=== PATIENT | female | born 1940 | race Caucasian/White ===

== ENCOUNTER 2025-01-30 17:38 | Observation (INO) | payer MEDICARE, SELFPAY ==
[2025-01-30] VITALS (32 sets, daily range): BP systolic 154–263; BP diastolic 49–83; PULSE 55–62; RESP 16–22; TEMP 36.2–36.7; O2SAT 93–97; BMI 31.2
--- NOTE | ~2025-01-30 | US_ITS ---
BILATERAL LOWER EXTREMITY VENOUS DUPLEX Clinical History: +DDimer . Comparison: None. Technique: Grayscale, color, duplex/spectral Doppler sonography bilateral lower extremities. Findings: Bilateral common femoral, femoral, popliteal, and calf veins compressible and color Doppler patent. Normal augmentation with distal compression. No internal echoes. IMPRESSION: 1. No DVT either leg. Reviewed, dictated and finalized at location R. IMPRESSION: 1. No DVT either leg.
--- NOTE | ~2025-01-30 | CT_ITS ---
EXAMINATION: CTA chest PE protocol, 01/31/2025 11:15 CDT HISTORY: chest pain COMPARISON: No comparisons available. TECHNIQUE: CTA examination is obtained with contrast CTA examination technique is performed with arterial phase of contrast-enhancement. 3-D reconstruction with thin MIP axial and MPR coronal imaging is provided Isovue 300, 92cc injected IV. One or more of the following dose reduction techniques were used: automated exposure control, adjustment of the mA and/or kV according to patient size, use of iterative reconstruction technique. FINDINGS: No significant coronary calcification is present ([id number]) LUNGS: Small to moderate bilateral pleural effusions. Small basilar infiltrates. The contrast bolus is adequate, there is no pulmonary embolism. No tracheomalacia. No bronchiectasis. Minimal emphysematous changes. Minimal pulmonary fibrotic changes. Mild pulmonary venous congestion. No significant honeycombing is identified. HEART AND PERICARDIUM: Mild cardiomegaly. AORTA: Normal caliber aorta.. PULMONARY ARTERIES: No pulmonary embolism ADENOPATHY/MEDIASTINUM: None. LIMITED VIEWS OF THE ABDOMEN: Moderate hiatal hernia. OSSEOUS STRUCTURES: No sclerotic or lytic lesions. No acute rib fractures. Poststernotomy changes are evident. OVERLYING SOFT TISSUES: Unremarkable. THYROID: Bilateral thyroid nodules largest right lobe 1.5 x 1.5 cm, ultrasound is suggested. IMPRESSION: Negative for pulmonary embolism. CHF with probable superimposed bronchopneumonia, follow-up is recommended to assess resolution Reviewed, dictated and finalized at location P. IMPRESSION: Negative for pulmonary embolism. CHF with probable superimposed bronchopneumoni a, follow-up is recommended to assess resolution
--- NOTE | ~2025-01-30 | XR_ITS ---
XR chest 2V HOSTORY: CP COMPARISON:[ None] FINDINGS: Frontal and lateral views of the chest were obtained. The lungs are clear. The heart size is normal in size. Pulmonary vasculature is unremarkable. Osseous structures are intact. IMPRESSION: No acute lung findings.] [ ] Reviewed, dictated and finalized at location S.
--- NOTE | 2025-01-30 17:41 | ECG_ITS ---
Test Date: 2025-01-30 17:50:35 Measurements Intervals [place] Rate: 57 P: 41 CT: 158 QRS: 34 QRSD: 93 T: 37 QT: 448 QTc: 439 Interpretive Statements SINUS BRADYCARDIA INCOMPLETE RIGHT BUNDLE BRANCH BLOCK BORDERLINE ST-T WAVE ABNORMALITY- DIFFUSE LEADS BASELINE ARTIFACT- V2, V5-V6 BORDERLINE ECG No previous ECG available for comparison Electronically Signed On 01-30-2025 20:53:11 CDT by Luís Argueta D.O.
[2025-01-30 17:56] LABS: Hematocrit 30.6 % (37.0-47.0); Hemoglobin 9.9 g/dL (12.0-15.0); Immature Granulocyte Percent A 0.3 % (0-0.5); Lymphocytes Absolute Auto 1.42 K/mm3 (0.9-3.2); Mean Corpuscular HGB Conc 32.4 g/dl (32-36); Mean Corpuscular Hemoglobin 30.6 pg (26-34); Mean Corpuscular Volume 94.4 fl (80-100); Nucleated Red Blood Cells Absolute Auto 0.000 K/mm3 (0.0-0.012); Nucleated Red Blood Cells Perc 0.0 % (0.0-0.2); Platelet Count Result 160 k/mm3 (150-375); Red Blood Count 3.24 M/mm3 (4.2-5.4); White Blood Count 6.2 K/mm3 (4.5-10.0)
--- NOTE | 2025-01-30 18:01 | PC.NURSE ---
Pt blood pressure 263/83 upon triage. EDP DARIAN Aparicio made aware and at pt bedside at this time.
[2025-01-30 18:07] LABS: INR 1.0; Prothrombin Time 13.5 Seconds (11.1-14.7)
[2025-01-30 18:08] LABS: Alanine Aminotransferase 18 U/L (6-35); Albumin Level 3.7 g/dL (3.5-5.1); Alkaline Phosphatase 66 U/L (38-126); Anion Gap 7 mmol/L (4-12); Aspartate Amino Transferase 30 U/L (14-36); Bilirubin,Total 0.4 mg/dL (0.2-1.3); Blood Urea Nitrogen 14 mg/dL (7-17); Calcium 8.5 mg/dL (8.4-10.2); Carbon Dioxide 25 mmol/L (22-30); Chloride 107 mmol/L (98-107); Estimated CRCL calculation 38 ml/min; Estimated Glomerular Filt Rate 50; Glucose 95 mg/dL (65-110); Lipase 97 U/L (23-300); Partial Thromboplastin Time 28.8 Seconds (22.3-36.8); Potassium 3.4 mmol/L (3.4-5.0); Sodium 139 mmol/L (137-145); Total Protein 6.3 g/dL (6.3-8.2)
--- NOTE | 2025-01-30 18:17 | ED.CHESTPAIN ---
HPI - Chest Pain General Chief Complaint: Chest Pain <Jennifer Reed PA-C - Last Filed: 01/30/25 22:03> Stated Complaint: Chest pain <Jennifer Reed PA-C - Last Filed: 01/30/25 22:03> Time Seen by Provider: 01/30/25 17:53 <Jennifer Reed PA-C - Last Filed: 01/30/25 22:03> Source: patient <AMRITA Reyna Last Filed: 01/30/25 22:03> Mode of arrival: ambulatory <AMRITA Reyna Last Filed: 01/30/25 22:03> Limitations: no limitations <AMRITA Reyna Last Filed: 01/30/25 22:03> History of Present Illness HPI narrative: Patient is an 84-year-old female, with PMH of CAD s/p CABG 3 years ago, who presents the ED with report of chest pain. Patient reports she has been having near constant midsternal chest pain, described as a heaviness and is of someone punched her in her chest, for the past 2-3 weeks. States she contacted her store group manager, Dr. Smith today and was referred to the ED for further evaluation. Patient also reports having increased shortness of breath with exertion over the past 2 weeks. Does admit to mild intermittent dry cough. Denies fevers. Denies significant lower extremity swelling. <Jennifer Reed PA-C - Last Filed: 01/30/25 22:03> Related Data Home Medications: Home Medications ?Medication ?Instructions ?Recorded ?Confirmed ?Last Taken ?Type aspirin 81 mg capsule 81 mg PO DAILY 01/30/25 01/30/25 01/30/25 History atorvastatin 40 mg tablet (Lipitor) 40 mg PO DAILY 01/30/25 01/30/25 01/30/25 History carvedilol 3.125 mg tablet 3.125 mg PO BID 01/30/25 01/30/25 01/30/25 History clopidogrel 75 mg tablet 75 mg PO DAILY 01/30/25 01/30/25 01/30/25 08:00 History 75 mg famotidine 20 mg tablet 20 mg PO DAILY 01/30/25 01/30/25 01/29/25 History ferrous sulfate 325 mg (65 mg 325 mg PO DAILY 01/30/25 01/30/25 01/30/25 History iron) tablet (Feosol) hydralazine 25 mg tablet 25 mg PO BID 01/30/25 01/30/25 01/30/25 History hydroxyzine HCl 25 mg tablet 25 mg PO BID 01/30/25 01/30/25 01/30/25 History isosorbide mononitrate 30 mg 30 mg PO DAILY 01/30/25 01/30/25 01/30/25 History tablet,extended release 24 hr losartan 100 mg tablet 100 mg PO DAILY 01/30/25 01/30/25 01/30/25 History nifedipine 90 mg tablet,extended 90 mg PO DAILY 01/30/25 01/30/25 01/30/25 History release pravastatin 20 mg tablet 20 mg PO DAILY 01/30/25 01/30/25 01/30/25 History sertraline 100 mg tablet 100 mg PO DAILY 01/30/25 01/30/25 01/30/25 History trazodone 100 mg tablet 50 mg PO HS 01/30/25 01/30/25 01/29/25 21:00 History 50 mg <Jennifer Reed PA-C - Last Filed: 01/30/25 22:03> Allergies/Adverse Reactions: Allergies Allergy/AdvReac Type Severity Reaction Status Date / Time No Known Allergies Allergy Verified 01/30/25 22:36 <Jennifer Reed PA-C - Last Filed: 01/30/25 22:03> Review of Systems Review of Systems: All systems reviewed & are unremarkable except as noted in HPI. <Jennifer Reed PA-C - Last Filed: 01/30/25 22:03> All systems reviewed & are unremarkable except as noted in HPI and below <Jennifer Reed PA-C - Last Filed: 01/30/25 22:03> FOR[facility], LAT[facility] Past Medical History Medical History: Medical History (Updated 01/31/25 @ 04:15 by Delia Gusman DO) Anxiety and depression CKD (chronic kidney disease) stage 3, GFR 30-59 ml/min GERD (gastroesophageal reflux disease) Obstructive sleep apnea Essential hypertension Hyperlipidemia Paroxysmal atrial fibrillation <Jennifer Reed PA-C - Last Filed: 01/30/25 22:03> Surgical History Surgical History: Surgical History (Updated 01/31/25 @ 04:15 by Delia Gusman DO) H/O hysterectomy with unilateral oophorectomy Status post cataract extraction of both eyes with insertion of intraocular lens History of colonoscopy with polypectomy History of appendectomy History of heart artery stent History of four vessel coronary artery bypass graft (~2021) <Jennifer Reed PA-C - Last Filed: 01/30/25 22:03> Family History Family History: Family History Other Cerebrovascular accident Diabetes mellitus Family history of arthritis Family history of heart disease in male family member before age 55 Hypertension <Jennifer Reed PA-C - Last Filed: 01/30/25 22:03> Social History Social History: Social History (Updated 01/31/25 @ 04:19 by Delia Gusman DO) Social History: The patient is reports that she lives in [place] and her only daughter lives with her. She is a lifelong nonsmoker and does not drink alcohol or use illicit substances. Code status: Full code Surrogate decision maker: Daughter Smoking status: Never smoker Alcohol intake: never Substance use: never Lack of Transportation: No Lack of Food: Never True Current Housing: I Have Housing Concerned About Future Housing: No Difficulty Paying Gas/Electric Bills: No Difficulty Paying for Meds: No Currently Unemployed: No Education: High School Diploma/GED Difficulty w/ Childcare or Family Care: No Spiritual care concerns: No <AMRITA Reyna Last Filed: 01/30/25 22:03> Exam Narrative: GENERAL: Elderly, obese with BMI of 32.8, non-toxic, in no acute distress. HEAD: Normocephalic, atraumatic. RESPIRATORY: Airway patent, respirations nonlabored. Clear to auscultation bilaterally, no rales, rhonchi, wheezing. No significant focal lung sounds. CARDIOVASCULAR: Borderline bradycardic with regular rhythm without murmurs, rubs, or gallops. ABDOMINAL: Soft, nontender, nondistended. Normoactive BS. MUSCULOSKELETAL: Moves all extremities. No gross deformities. Compression stockings in place. No significant pitting edema. SKIN: Warm, dry, normal color. NEURO: A&O X3. Speech clear. Cranial nerves II-XII grossly intact. Steady gait. No ataxic movements. PSYCHIATRIC: Appropriate mood and affect. Normal interaction. <Jennifer Reed PA-C - Last Filed: 01/30/25 22:03> Course IMPORT EXPORT MANAGER/PA Physician Supervision This visit was performed by both a physician and an APC. I performed all aspects of the MDM as documented. <Richard Palafox MD - Last Filed: 01/31/25 04:34> Vital Signs Vital signs: Vital Signs Pulse Rate 60 01/30/25 17:45 Respiratory Rate 16 01/30/25 17:45 Pulse Oximetry 95 01/30/25 17:45 Temperature 98.1 F 01/31/25 03:48 Pulse Rate 62 01/31/25 04:25 Respiratory Rate 20 01/31/25 04:25 Blood Pressure 150/47 H 01/31/25 03:48 Pulse Oximetry 92 01/31/25 04:25 Oxygen Delivery Room Air 01/31/25 04:25 <Jennifer Reed PA-C - Last Filed: 01/30/25 22:03> Vital Signs Pulse Rate 60 01/30/25 17:45 Respiratory Rate 16 01/30/25 17:45 Pulse Oximetry 95 01/30/25 17:45 Temperature 98.1 F 01/31/25 03:48 Pulse Rate 62 01/31/25 04:25 Respiratory Rate 20 01/31/25 04:25 Blood Pressure 150/47 H 01/31/25 03:48 Pulse Oximetry 92 01/31/25 04:25 Oxygen Delivery Room Air 01/31/25 04:25 <Richard Palafox MD - Last Filed: 01/31/25 04:34> MDM - Chest Pain MDM Narrative Medical decision making narrative: Patient presented to ED with 2-3 week history of midsternal chest pain/heaviness. History of CAD status post CABG. Patient markedly hypertensive upon arrival. Blood pressure 263/83. She reports that she has not taken her nighttime blood pressure medications tonight. She is on multiple medications for her blood pressure. She took her morning doses. She states she typically checks her blood pressure once a day and is typically around 140 systolic, but she has not checked it in the last 1 week. Patient was given her home Coreg, nifedipine, hydralazine p.o.. This did improve BP slightly to 200 systolic. She was given additional dose of 10 mg IV hydralazine, blood pressures now more stable 170s to 180s systolic. Initial EKG with sinus bradycardia, incomplete right bundle, no significant concerning ST changes. Baseline troponin 0.029. Will continue to trend. BNP is elevated to nearly 7000. Patient does not appear markedly fluid overloaded. She is denying worsening lower extremity edema, but does admit to recent shortness of breath with exertion. Chest x-ray is clear. No evidence of pulmonary vascular congestion. She has not appear to be on any diuretic therapy. No previous known history of CHF. No echo on file. Remainder basic laboratory studies are otherwise fairly unremarkable. D-dimer age adjusted normal. Patient was given 1 dose of sublingual nitro and reports complete resolution of chest pain. Patient with elevated heart score. Will be admitted for further evaluation. Discussed case with Dr. Gusman, hospitalist, accepted patient for admission. Patient and family in agreement with plan and need for admission. <Jennifer Reed PA-C - Last Filed: 01/30/25 22:03> Patient presented to ED with 2-3 week history of midsternal chest pain/heaviness. History of CAD status post CABG. Patient markedly hypertensive upon arrival. Blood pressure 263/83. She reports that she has not taken her nighttime blood pressure medications tonight. She is on multiple medications for her blood pressure. She took her morning doses. She states she typically checks her blood pressure once a day and is typically around 140 systolic, but she has not checked it in the last 1 week. Patient was given her home Coreg, nifedipine, hydralazine p.o.. This did improve BP slightly to 200 systolic. She was given additional dose of 10 mg IV hydralazine, blood pressures now more stable 170s to 180s systolic. Initial EKG with sinus bradycardia, incomplete right bundle, no significant concerning ST changes. Baseline troponin 0.029. Will continue to trend. BNP is elevated to nearly 7000. Patient does not appear markedly fluid overloaded. She is denying worsening lower extremity edema, but does admit to recent shortness of breath with exertion. Chest x-ray is clear. No evidence of pulmonary vascular congestion. She has not appear to be on any diuretic therapy. No previous known history of CHF. No echo on file. Remainder basic laboratory studies are otherwise fairly unremarkable. D-dimer age adjusted normal. Patient was given 1 dose of sublingual nitro and reports complete resolution of chest pain. Patient with elevated heart score. Will be admitted for further evaluation. Discussed case with Dr. Gusman, hospitalist, accepted patient for admission. Patient and family in agreement with plan and need for admission. This visit was performed by both a physician and an APC. I performed all aspects of the MDM as documented. <Richard Palafox MD - Last Filed: 01/31/25 04:34> Medical Records Data Attestation: I reviewed the patient's medical records. <Jennifer Reed PA-C - Last Filed: 01/30/25 22:03> Lab Data Attestation: I reviewed the patient's lab results. <Jennifer Reed PA-C - Last Filed: 01/30/25 22:03> Result diagrams: 01/30/25 17:50 01/30/25 17:50 <Jennifer Reed PA-C - Last Filed: 01/30/25 22:03> Labs: Lab Results 01/30/25 01/30/25 Range/Units 17:50 20:52 WBC 6.2 (4.5-10.0) K/mm3 RBC 3.24 L (4.2-5.4) M/mm3 Hgb 9.9 L (12.0-15.0) g/dL Hct 30.6 L (37.0-47.0) % MCV 94.4 (80-100) fl MCH 30.6 (26-34) pg MCHC 32.4 (32-36) g/dl RDW 13.4 (11.5-14.5) % Plt Count 160 (150-375) k/mm3 MPV 11.8 H (7.4-10.4) fl Immature Gran % (Auto) 0.3 (0-0.5) % Neut % (Auto) 68.6 (45.5-73.1) % Lymph % (Auto) 22.9 (18.3-44.2) % [place] % (Auto) 6.8 (2.6-8.5) % Eos % (Auto) 1.1 (0-4.4) % Baso % (Auto) 0.3 (0.2-1.2) % Lymph # (Auto) 1.42 (0.9-3.2) K/mm3 [place] # (Auto) 0.4 (0.1-0.6) K/mm3 Eos # (Auto) 0.1 (0-0.3) K/mm3 Baso # (Auto) 0.0 (0.0-0.1) K/mm3 Abs Immat Gran (auto) 0.02 (0.00-0.031) K/mm3 Absolute Neuts (auto) 4.3 (1.3-6.7) K/mm3 Absolute Nucleated RBC 0.000 (0.0-0.012) K/mm3 Nucleated RBC % 0.0 (0.0-0.2) % PT 13.5 (11.1-14.7) Seconds INR 1.0 APTT 28.8 (22.3-36.8) Seconds D-Dimer 0.58 H (<0.48) ug/mL Sodium 139 (137-145) mmol/L Potassium 3.4 (3.4-5.0) mmol/L Chloride 107 (98-107) mmol/L Carbon Dioxide 25 (22-30) mmol/L Anion Gap 7 (4-12) mmol/L BUN 14 (7-17) mg/dL Creatinine 1.05 H (0.7-1.0) mg/dL Estim Creat Clear Calc 38 ml/min Estimated GFR 50 L (59 - ) Glucose 95 (65-110) mg/dL Calcium 8.5 (8.4-10.2) mg/dL Total Bilirubin 0.4 (0.2-1.3) mg/dL AST 30 (14-36) U/L ALT 18 (6-35) U/L Alkaline Phosphatase 66 (38-126) U/L Troponin I 0.029 0.029 (0.000-0.034) ng/mL NT-Pro-B Natriuret Pep 6910 H (19.9-100) pg/mL Total Protein 6.3 (6.3-8.2) g/dL Albumin 3.7 (3.5-5.1) g/dL Lipase 97 (23-300) U/L <Jennifer Reed PA-C - Last Filed: 01/30/25 22:03> Lab Results 01/30/25 01/30/25 Range/Units 17:50 20:52 WBC 6.2 (4.5-10.0) K/mm3 RBC 3.24 L (4.2-5.4) M/mm3 Hgb 9.9 L (12.0-15.0) g/dL Hct 30.6 L (37.0-47.0) % MCV 94.4 (80-100) fl MCH 30.6 (26-34) pg MCHC 32.4 (32-36) g/dl RDW 13.4 (11.5-14.5) % Plt Count 160 (150-375) k/mm3 MPV 11.8 H (7.4-10.4) fl Immature Gran % (Auto) 0.3 (0-0.5) % Neut % (Auto) 68.6 (45.5-73.1) % Lymph % (Auto) 22.9 (18.3-44.2) % [place] % (Auto) 6.8 (2.6-8.5) % Eos % (Auto) 1.1 (0-4.4) % Baso % (Auto) 0.3 (0.2-1.2) % Lymph # (Auto) 1.42 (0.9-3.2) K/mm3 [place] # (Auto) 0.4 (0.1-0.6) K/mm3 Eos # (Auto) 0.1 (0-0.3) K/mm3 Baso # (Auto) 0.0 (0.0-0.1) K/mm3 Abs Immat Gran (auto) 0.02 (0.00-0.031) K/mm3 Absolute Neuts (auto) 4.3 (1.3-6.7) K/mm3 Absolute Nucleated RBC 0.000 (0.0-0.012) K/mm3 Nucleated RBC % 0.0 (0.0-0.2) % PT 13.5 (11.1-14.7) Seconds INR 1.0 APTT 28.8 (22.3-36.8) Seconds D-Dimer 0.58 H (<0.48) ug/mL Sodium 139 (137-145) mmol/L Potassium 3.4 (3.4-5.0) mmol/L Chloride 107 (98-107) mmol/L Carbon Dioxide 25 (22-30) mmol/L Anion Gap 7 (4-12) mmol/L BUN 14 (7-17) mg/dL Creatinine 1.05 H (0.7-1.0) mg/dL Estim Creat Clear Calc 38 ml/min Estimated GFR 50 L (59 - ) Glucose 95 (65-110) mg/dL Calcium 8.5 (8.4-10.2) mg/dL Total Bilirubin 0.4 (0.2-1.3) mg/dL AST 30 (14-36) U/L ALT 18 (6-35) U/L Alkaline Phosphatase 66 (38-126) U/L Troponin I 0.029 0.029 (0.000-0.034) ng/mL NT-Pro-B Natriuret Pep 6910 H (19.9-100) pg/mL Total Protein 6.3 (6.3-8.2) g/dL Albumin 3.7 (3.5-5.1) g/dL Lipase 97 (23-300) U/L <Richard Palafox MD - Last Filed: 01/31/25 04:34> Imaging Data Attestation: I personally reviewed and interpreted this imaging study as follows: <Jennifer Reed PA-C - Last Filed: 01/30/25 22:03> Radiologist's impression: ITS Impressions Chest X-Ray 01/30/25 19:06 IMPRESSION: No acute lung findings.] [ ] <Jennifer Reed PA-C - Last Filed: 01/30/25 22:03> ECG Data EKG #1: Attestation: I personally reviewed and interpreted this ECG as follows: <Jennifer Reed PA-C - Last Filed: 01/30/25 22:03> ECG completion date: 01/30/25 <Jennifer Reed PA-C - Last Filed: 01/30/25 22:03> ECG completion time: 17:50 <Jennifer Reed PA-C - Last Filed: 01/30/25 22:03> EKG Interpretation: bradycardia (57), sinus rhythm, non-specific ST changes and RBBB (incomplete) <Jennifer Reed PA-C - Last Filed: 01/30/25 22:03> Discharge Plan Discharge Clinical Impression: Dyspnea on exertion, Elevated brain natriuretic peptide (BNP) level, Hypertensive urgency Chest pain Qualifiers: Chest pain type: unspecified Qualified Code(s): R07.9 - Chest pain, unspecified <Jennifer Reed PA-C - Last Filed: 01/30/25 22:03> Patient Disposition: Still a Patient <Jennifer Reed PA-C - Last Filed: 01/30/25 22:03> Condition: Stable <Jennifer Reed PA-C - Last Filed: 01/30/25 22:03> Quality HEART score for chest pain patients History: moderately suspicious <Jennifer Reed PA-C - Last Filed: 01/30/25 22:03> ECG: normal <Jennifer Reed PA-C - Last Filed: 01/30/25 22:03> Age: > or = to 65 years <Jennifer Reed PA-C - Last Filed: 01/30/25 22:03> Risk factors: > or = to 3 risk factors of atherosclerotic disease <Jennifer Reed PA-C - Last Filed: 01/30/25 22:03> Troponin: < or = to 1x normal limit <Jennifer Reed PA-C - Last Filed: 01/30/25 22:03> Heart score: 5 <Jennifer Reed PA-C - Last Filed: 01/30/25 22:03> 5 <Richard Palafox MD - Last Filed: 01/31/25 04:34>
[2025-01-30 18:19] LABS: Troponin I 0.029 ng/mL (0.000-0.034)
[2025-01-30 18:58] LABS: NT Pro B Type Natriuretic Pept 6910 pg/mL (19.9-100)
[2025-01-30] MEDS: NITROGLYCERIN SL 0.4 MG TABLET SUBLINGUAL (20:16)
--- NOTE | 2025-01-30 20:47 | ECG_ITS ---
Test Date: 2025-01-30 20:52:20 Measurements Intervals [place] Rate: 57 P: 53 AR: 168 QRS: 33 QRSD: 94 T: 38 QT: 432 QTc: 421 Interpretive Statements SINUS BRADYCARDIA INCOMPLETE RIGHT BUNDLE BRANCH BLOCK BORDERLINE ST-T WAVE ABNORMALITY- DIFFUSE LEADS BORDERLINE ECG Compared to ECG 01/30/2025 17:50:35 NO SIGNIFICANT CHANGE Electronically Signed On 01-30-2025 21:06:31 CDT by Luís Argueta D.O.
[2025-01-30 21:20] LABS: Troponin I 0.029 ng/mL (0.000-0.034)
--- NOTE | 2025-01-30 22:35 | ADMGEN ---
This patient, Kayden Tsai, was admitted to IMU Room 205-01. Patient/family oriented to hospital policies and general routines including ID bracelet, bed and alarms, visiting hours, pain management, procedures, bathroom and other care routines, personal items, smoking policy, room service/diet, and visiting hours. Information on how to activate the Rapid Response Team has been discussed. Patient/Family are encouraged to report perceived risks to care and to ask questions if they do not understand what they are told or what they should do.
[2025-01-31] VITALS (19 sets, daily range): BP systolic 143–169; BP diastolic 39–62; PULSE 52–73; RESP 16–20; TEMP 36.7–37.1; O2SAT 91–98
[2025-01-31 00:15] LABS: Troponin I 0.029 ng/mL (0.000-0.034)
--- NOTE | 2025-01-31 00:55 | PM.IMHP ---
H&P: HPI History of Present Illness Date/Time: 01/31/25 01:39 Chief Complaint: Aching chest discomfort Narrative: 84-year-old female with a past medical history atrial fibrillation, coronary artery disease status post 4 vessel CABG 2021, coronary artery stent, essential hypertension, hyperlipidemia, obstructive sleep apnea, GERD, chronic kidney disease stage 3 who presented to the ER from primary care physician's office after having chest discomfort for 2-3 weeks. The patient provides the majority of the history is she has never been evaluated at our facility before. She is a relatively good historian. The patient reports that she follows with Dr. Sandy Smith from Cardiology. She has been having near constant is chest pain in the center of her chest. She reported that she felt as if someone punched her in the chest. She began having shortness of breath with exertion 3-4 weeks ago associated with some aching chest discomfort that was central in nature. It was associated with a mild nonproductive cough. She denied any fevers or chills. She has not had any orthopnea or paroxysmal nocturnal dyspnea. She had not noticed any increased abdominal distension are peripheral edema. She has been wearing support socks due to her legs aching. She reports that when she tries to sit in her recliner with her legs up she gets discomfort down the back of both of her legs. When she sits with her legs dangling she does not get the discomfort but does developed some edema which is why she put on the support socks. She has not noticed any worsening in her chest discomfort with activity. She did report feeling somewhat nauseous with upset stomach. She called her meat supervisor office who told her that it did not sound of than like it was her heart and they recommended that she go to her primary care physician's office. Her primary care physician and told her that they did not have the equipment needed to evaluate her and directed her to come to the ER. She has not had an echo in a couple of years. X-ray did not demonstrate any evidence of pulmonary vascular congestion and she does not have any JVD. She does have some trace lower extremity edema and still has her support hose in place. She denies a known history of CHF enter BMP in the ER was 7000. Her troponins were 0.029 x 2. EKG which was reviewed demonstrated sinus bradycardia with incomplete right bundle-branch block with no significant ischemic changes. On arrival to the ER the patient's blood pressures were markedly elevated up to 263/83. The patient had reported to the ER staff that she used to check her blood pressures almost every day but stopped doing so over the last 1-2 weeks. She used to check her blood pressures usually in the morning. She took her morning medications prior to coming to the ER but had not received her evening medications. In the ER patient received her evening Coreg nifedipine and hydralazine with improvement in her systolic blood pressure down to the 200s. She received 1 dose of IV hydralazine and 1 dose of sublingual nitroglycerin with blood pressures down into the 170s to 180s. She received 1 dose of By the time I evaluated the patient about an hour after arriving to the intermediate unit the patient's systolic blood pressures were down into the 150s. Her chest discomfort resolved after her 2nd dose of nitroglycerin Review of Systems Review of Systems: 12 systems were reviewed with pertinent positives and negatives per HPI. Except as documented in the HPI, all other systems were reviewed and are negative. [facility] Past Medical History Medical History (Updated 01/31/25 @ 04:15 by Delia Gusman DO) Anxiety and depression CKD (chronic kidney disease) stage 3, GFR 30-59 ml/min GERD (gastroesophageal reflux disease) Obstructive sleep apnea Essential hypertension Hyperlipidemia Paroxysmal atrial fibrillation Surgical History Surgical History (Updated 01/31/25 @ 04:15 by Delia Gusman DO) H/O hysterectomy with unilateral oophorectomy Status post cataract extraction of both eyes with insertion of intraocular lens History of colonoscopy with polypectomy History of appendectomy History of heart artery stent History of four vessel coronary artery bypass graft (~2021) Family History Family History Other Cerebrovascular accident Diabetes mellitus Family history of arthritis Family history of heart disease in male family member before age 55 Hypertension Social History Social History (Updated 01/31/25 @ 04:19 by Delia Gusman DO) Social History: The patient is reports that she lives in [place] and her only daughter lives with her. She is a lifelong nonsmoker and does not drink alcohol or use illicit substances. Code status: Full code Surrogate decision maker: Daughter Smoking status: Never smoker Alcohol intake: never Substance use: never Lack of Transportation: No Lack of Food: Never True Current Housing: I Have Housing Concerned About Future Housing: No Difficulty Paying Gas/Electric Bills: No Difficulty Paying for Meds: No Currently Unemployed: No Education: High School Diploma/GED Difficulty w/ Childcare or Family Care: No Spiritual care concerns: No Meds Home Medications and Allergies Home Medications ?Medication ?Instructions ?Recorded ?Confirmed ?Type aspirin 81 mg capsule 81 mg PO DAILY 01/30/25 01/30/25 History atorvastatin 40 mg tablet (Lipitor) 40 mg PO DAILY 01/30/25 01/30/25 History carvedilol 3.125 mg tablet 3.125 mg PO BID 01/30/25 01/30/25 History clopidogrel 75 mg tablet 75 mg PO DAILY 01/30/25 01/30/25 History famotidine 20 mg tablet 20 mg PO DAILY 01/30/25 01/30/25 History ferrous sulfate 325 mg (65 mg 325 mg PO DAILY 01/30/25 01/30/25 History iron) tablet (Feosol) hydralazine 25 mg tablet 25 mg PO BID 01/30/25 01/30/25 History hydroxyzine HCl 25 mg tablet 25 mg PO BID 01/30/25 01/30/25 History isosorbide mononitrate 30 mg 30 mg PO DAILY 01/30/25 01/30/25 History tablet,extended release 24 hr losartan 100 mg tablet 100 mg PO DAILY 01/30/25 01/30/25 History nifedipine 90 mg tablet,extended 90 mg PO DAILY 01/30/25 01/30/25 History release pravastatin 20 mg tablet 20 mg PO DAILY 01/30/25 01/30/25 History sertraline 100 mg tablet 100 mg PO DAILY 01/30/25 01/30/25 History trazodone 100 mg tablet 50 mg PO HS 01/30/25 01/30/25 History Allergies Allergy/AdvReac Type Severity Reaction Status Date / Time No Known Allergies Allergy Verified 01/30/25 22:36 Vital Signs Vital Signs - 24 hr 01/30/25 17:45 01/30/25 17:52 01/30/25 18:00 Temperature 97.2 F L Pulse Rate 60 57 L 58 L Respiratory Rate 16 16 21 H Blood Pressure 263/83 H Pulse Oximetry 95 97 95 Oxygen Delivery Room Air 01/30/25 18:02 01/30/25 18:15 01/30/25 18:17 Temperature Pulse Rate 56 L 55 L 56 L Respiratory Rate 22 H 19 22 H Blood Pressure 258/81 H 245/79 H Pulse Oximetry 96 94 94 Oxygen Delivery 01/30/25 18:33 01/30/25 18:35 01/30/25 18:54 Temperature Pulse Rate 60 61 61 Respiratory Rate 17 21 H Blood Pressure Pulse Oximetry 96 96 Oxygen Delivery 01/30/25 19:12 01/30/25 19:15 01/30/25 19:16 Temperature Pulse Rate 60 58 L 58 L Respiratory Rate 17 17 16 Blood Pressure 226/71 H Pulse Oximetry 96 96 96 Oxygen Delivery 01/30/25 19:30 01/30/25 19:31 01/30/25 19:35 Temperature Pulse Rate 57 L 58 L 58 L Respiratory Rate 17 18 16 Blood Pressure 222/75 H 222/75 H Pulse Oximetry 95 95 97 Oxygen Delivery 01/30/25 19:48 01/30/25 20:00 01/30/25 20:01 Temperature Pulse Rate 57 L 57 L 58 L Respiratory Rate 19 20 21 H Blood Pressure 219/74 H Pulse Oximetry 95 95 96 Oxygen Delivery 01/30/25 20:15 01/30/25 20:30 01/30/25 20:31 Temperature Pulse Rate 56 L 55 L 58 L Respiratory Rate 16 17 18 Blood Pressure 188/59 H Pulse Oximetry 96 95 94 Oxygen Delivery 01/30/25 20:45 01/30/25 20:46 01/30/25 20:46 Temperature Pulse Rate 55 L 56 L Respiratory Rate 18 20 Blood Pressure 188/59 H 178/60 H Pulse Oximetry 95 95 Oxygen Delivery 01/30/25 21:00 01/30/25 21:01 01/30/25 21:17 Temperature Pulse Rate 57 L 58 L 55 L Respiratory Rate 19 21 H 21 H Blood Pressure 186/56 H Pulse Oximetry 95 95 93 Oxygen Delivery 01/30/25 21:30 01/30/25 21:31 01/30/25 21:56 Temperature Pulse Rate 56 L 59 L 61 Respiratory Rate 20 22 H 19 Blood Pressure 168/68 H Pulse Oximetry 93 94 96 Oxygen Delivery 01/30/25 22:05 01/30/25 23:00 01/30/25 23:56 Temperature 98.1 F Pulse Rate 59 L 60 62 Respiratory Rate 19 19 20 Blood Pressure 154/49 H Pulse Oximetry 96 95 Oxygen Delivery Room Air 01/31/25 00:00 Temperature Pulse Rate 62 Respiratory Rate Blood Pressure Pulse Oximetry Oxygen Delivery Exam Narrative: Weight 80 kg BMI 31.2 Const: Other: No acute distress, well-developed well-nourished, appears stated age HENMT: Other: Mucous membranes are moist, no oral pharyngeal erythema, upper dentures in place, edentulous in lower jaw with dentures at bedside Eyes: Other: Pupils are equal and reactive with bilateral lens implants noted, positive conjunctival pallor, no scleral icterus Neck: Other: No JVD, no lymphadenopathy, no thyromegaly Resp: Other: Clear to auscultation bilaterally, no increased work of breathing Cardio: Other: Regular rate, regular rhythm, 2+ bilateral radial pedal pulses GI: Other: Soft, nontender, nondistended, positive bowel sounds Skin: Other: Mild pallor, non jaundice Neuro: Other: Alert oriented x4, speech is clear, no facial asymmetry, moves all extremities equally, no localizing neurologic deficits noted during the course of conversation Extrem: Other: No clubbing, cyanosis or edema equal online program coordinator strength bilateral Psych: Other: Appropriate mood and affect, pleasant and cooperative, judgment and insight intact H&P: Results Labs Labs: Laboratory Tests 01/30/25 17:50 01/30/25 17:50 01/30/25 01/30/25 01/30/25 17:50 20:52 23:46 WBC 6.2 RBC 3.24 L Hgb 9.9 L Hct 30.6 L MCV 94.4 MCH 30.6 MCHC 32.4 RDW 13.4 Plt Count 160 MPV 11.8 H Immature Gran % (Auto) 0.3 Neut % (Auto) 68.6 Lymph % (Auto) 22.9 Hall % (Auto) 6.8 Eos % (Auto) 1.1 Baso % (Auto) 0.3 Lymph # (Auto) 1.42 Hall # (Auto) 0.4 Eos # (Auto) 0.1 Baso # (Auto) 0.0 Abs Immat Gran (auto) 0.02 Absolute Neuts (auto) 4.3 Absolute Nucleated RBC 0.000 Nucleated RBC % 0.0 PT 13.5 INR 1.0 APTT 28.8 D-Dimer 0.58 H Sodium 139 Potassium 3.4 Chloride 107 Carbon Dioxide 25 Anion Gap 7 BUN 14 Creatinine 1.05 H Estim Creat Clear Calc 38 Estimated GFR 50 L Glucose 95 Calcium 8.5 Total Bilirubin 0.4 AST 30 ALT 18 Alkaline Phosphatase 66 Troponin I 0.029 0.029 0.029 NT-Pro-B Natriuret Pep 6910 H Total Protein 6.3 Albumin 3.7 Lipase 97 Impressions Chest X-Ray 01/30/25 19:06 IMPRESSION: No acute lung findings.] [ ] Assessment and Plan Assessment and plan (1) Hypertensive urgency: Code(s): I16.0 - Hypertensive urgency Status: Acute (2) Chest pain: Qualifiers: Chest pain type: unspecified Qualified Code(s): R07.9 - Chest pain, unspecified Code(s): R07.9 - Chest pain, unspecified Status: Acute (3) Dyspnea on exertion: Code(s): R06.09 - Other forms of dyspnea Status: Acute Plan Patient presents with hypertensive urgency with systolic blood pressures greater than 250 on initial presentation. Blood pressures are back within goal range at 150/47 at the time of this documentation following the administration of 6.25 mg of Coreg 90 mg of nifedipine, 25 mg of oral hydralazine and 0.4 mg of sublingual nitroglycerin. Patient also had associated chest pain with troponins there are not indicative of acute cardiac ischemia. I suspect the patient's chest discomfort was most likely due to hypertensive urgency/crisis. I think the being patient would benefit from increasing her hydralazine from twice daily to 3 times daily dosing his she may be having some and escalating blood pressures in the mid day to afternoon into the evening. Will also increase patient's Coreg to 6.25 mg b.i.d. as long as heart rate improved. Pain is currently resolved. Patient does not have any evidence of overt fluid overload to suggest pulmonary edema or volume overload. She has been having some dyspnea on exertion for several weeks. It has been a couple of years since she has had an echocardiogram. We could obtain an echocardiogram to further evaluate cardiac structure function of this could be deferred in be followed up with patient's meat supervisor as outpatient. A believe that the patient's meat supervisor does have privileges at our facility and if it were to more reasonable however I would call to discuss this with her meat supervisor regarding other I would want inpatient versus outpatient echocardiogram. Given her flat troponins and resolution symptoms do not feel that the patient necessarily needs in inpatient evaluation for stress test at this time. Will place patient on IV hydralazine 10 mg q.4 hours as needed for systolic blood pressures greater than 180. Will continue patient's home Lipitor Plavix and 81 mg aspirin. For some reason the patient is on both pravastatin and atorvastatin. Will hold pravastatin while hospitalized. The patient will need to clarify statin therapy with meat supervisor as outpatient. The patient's symptoms do not seem to be related to her GERD but she was having some nausea. Will continue patient's home famotidine. She does have underlying anxiety and depression. She seems calm and comfortable at this time. Will resume home sertraline, hydroxyzine and trazodone. Patient has been admitted as observation status. MEDICAL DECISION MAKING NARRATIVE -Spoke with the ED provider in detail regarding patient's evaluation, workup and management -Patient seen and examined at bedside -Collaborated with patient's nurse at the bedside in detail and addressed all concerns -Labs, electrolytes, radiology, investigations and test results personally reviewed and interpreted unless otherwise specified -ED/Consult/Nursing/Ancilliary notes on the chart reviewed and appreciated -Spoke with patient at bedside and diagnosis and plan of care was discussed. All questions answered. Quality VTE Prophylaxis VTE prophylaxis: pharmacologic ordered (Lovenox 40 mg subQ daily.) Hospitalist [facility] Advance Care Plan I have confirmed that the patient's Advanced Care Plan is present, code status is documented, or surrogate decision maker is listed in patient medical record.: Yes Medication Reconciliation I have utilized all available resources to obtain, update and review the patients current medications (includes all prescriptions, OTC, herbals, cannabis, and nutritional supplements).: Yes
--- NOTE | 2025-01-31 06:00 | ECHO_ITS ---
Patient Info Name: Kayden Tsai Age: 84 years : 1940 Gender: Female Ht: 63 in Wt: 176 lbs BSA: 1.91 m2 HR: 60 bpm BP: 143 / 57 mmHg Heart Rhythm: Sinus Rhythm Technical Quality: Good Exam Date: 01/31/2025 10:10 AM Patient Status: I Admit Date: 01/30/2025 Exam Type: CA echo doppler color flow Complete two-dimensional, color flow and Doppler transthoracic echocardiogram is performed. Staff Referring Physician: Cristobal Lopez MD Desk Maker: Raiza Christensen Attending Provider: Delia Gusman DO Summary 1. Complete two-dimensional, color flow and Doppler transthoracic echocardiogram is performed. 2. Normal left ventricular size with hyperdynamic systolic function and grade 2 diastolic noncompliance. 3. Dilated left atrium mild MR. 4. Sclerotic aortic valve with well maintained leaflet separation. 5. Mild mitral, tricuspid and pulmonic insufficiency. 6. TR velocity estimates systolic pulmonary artery pressure of 87 mmHg. Left Ventricle Left ventricular chamber dimension is normal. Left ventricular systolic function is hyperdynamic, estimated at >70. The left ventricular diastolic function is grade II diastolic dysfunction. Right Ventricle Right ventricular chamber dimension is normal. Left Atria Left atrial chamber dimension is moderately enlarged. Right Atria Right atrial chamber dimension is normal. Aortic Valve The aortic valve is trileaflet. There is moderate aortic valve sclerosis. Pulmonic Valve The pulmonic valve is normal. There is mild pulmonic regurgitation. Mitral Valve The mitral valve has normal leaflets. There is mild mitral valve regurgitation. The mitral valve annulus is moderately calcified. Tricuspid Valve The tricuspid valve leaflets are normal. There is mild tricuspid valve regurgitation. Pericardium/Pleural The pericardium appears normal. Aorta The aortic root size at the sinus of Valsalva is normal. Left Ventricular Outflow Tract Name Value Normal LVOT 2D LVOT Diameter 1.9 cm LVOT Doppler LVOT Peak Velocity 165 cm/s LVOT Peak Gradient 10 mmHg LVOT Mean Gradient 7 mmHg LVOT VTI 46 cm LVOT VTI/AV VTI Ratio 0.7 LVOT Stroke Volume 125 ml LVOT CO 7.7 l/min LVOT CI 4.0 l/min/m2 Pulmonic Valve Name Value Normal RVOT Doppler RVOT Peak Velocity 93 cm/s RVOT Peak Gradient 3 mmHg PV Doppler PV Peak Velocity 124 cm/s PV Peak Gradient 6 mmHg Mitral Valve Name Value Normal MV Diastolic Function MV E Peak Velocity 161 cm/s MV A Peak Velocity 73 cm/s MV E/A 2.2 MV Decel Time (PW) 258 ms MV Annular TDI MV E/e' (Septal) 53.6 MV E/e' (Lateral) 25.5 MV E/e' (Average) 39.5 Tricuspid Valve Name Value Normal TV Regurgitation Doppler TR Peak Velocity 468 cm/s TR Peak Gradient 57 mmHg Aortic Valve Name Value Normal AV Doppler AV Peak Velocity 277 cm/s AV Peak Gradient 23 mmHg AV Mean Gradient 14 mmHg AV VTI 66 cm AV Area (Cont Eq VTI) 1.9 cm2 >=3.0 AV Area (Cont Eq Ivan) 1.6 cm2 AV DI (Ivan) 0.59 AV Regurgitation 2D LVOT Area 2.7 cm2 Ventricles Name Value Normal LV Dimensions 2D/MM IVS Diastolic Thickness (2D) 0.7 cm 0.6-1.0 LVID Diastole (2D) 5.1 cm 3.8-5.2 LVIW Diastolic Thickness (2D) 1.0 cm 0.6-0.9 LVID Systole (2D) 2.7 cm 2.2-3.5 LVOT Diameter 1.9 cm LV Mass (2D Cubed) 142.05 g 67.00-162.00 LV Mass Index (2D Cubed) 74 g/m2 43-95 Relative Wall Thickness (2D) 0.39 <=0.42 LV Fractional Shortening/Ejection Fraction 2D/MM LV Fractional Shortening (2D) 46 % 27-45 LV EF (2D Teichholz) 77 % LV Diastolic Volume (4C MOD) 75 ml LV EF (4C MOD) 66 % LV Diastolic Volume (2C MOD) 76 ml LV EF (2C MOD) 65 % LV Diastolic Volume (BP MOD) 79 ml 46-106 LV Diastolic Volume Index (BP MOD) 41 ml/m2 29-61 LV Systolic Volume (BP MOD) 26 ml 14-42 LV Systolic Volume Index (BP MOD) 13 ml/m2 8-24 LV EF (BP MOD) 68 % 54-74 LV Diastolic Length (4C) 7.0 cm LV Systolic Length (4C) 5.8 cm LV Stroke Volume (4C MOD) 49 ml Atria Name Value Normal LA Dimensions LA Volume (4C A-L) 70 ml LA Volume (BP A-L) 80 ml RA Dimensions RA Systolic Major [place] Length (4C) 5.0 cm 2.2-2.8 RA Area (4C) 17.4 cm2 <=18.0 Report Signatures
[2025-01-31] MEDS: LOSARTAN POTASSIUM 100 MG TABLET PO (08:50)
[2025-01-31] MEDS: ISOSORBIDE MONONITRATE 30 MG TAB.ER.24H PO (08:50)
[2025-01-31] MEDS: FAMOTIDINE 20 MG TABLET PO (08:50)
[2025-01-31] MEDS: SERTRALINE HCL 50 MG TABLET 100 MG PO (08:50)
[2025-01-31] MEDS: ATORVASTATIN 40 MG TABLET PO (08:50)
[2025-01-31] MEDS: FERROUS SULFATE 325 MG TABLET PO (08:50)
[2025-01-31] MEDS: ASPIRIN 81 MG ENTERIC TABLET PO (08:50)
[2025-01-31] MEDS: CLOPIDOGREL BISULFATE 75 MG TABLET PO (08:51)
--- NOTE | 2025-01-31 09:26 | ECG_ITS ---
Test Date: 2025-01-31 09:27:51 Measurements Intervals [place] Rate: 66 P: 39 AR: 142 QRS: 38 QRSD: 90 T: 29 QT: 384 QTc: 404 Interpretive Statements SINUS RHYTHM POSSIBLE RIGHT VENTRICULAR CONDUCTION DELAY CONSIDER INFERIOR INFARCT, AGE INDETERMINATE BORDERLINE ST-T WAVE ABNORMALITY- ANTEROLAT/HIGH LAT LEADS BASELINE ARTIFACT- I, II, III, AVR, AVL, AVF ABNORMAL ECG Compared to ECG 01/30/2025 20:52:20 HEART RATE HAS INCREASED Electronically Signed On 01-31-2025 10:44:36 CDT by Luís Argueta D.O.
--- NOTE | 2025-01-31 10:11 | PM.IMPN ---
Progress Note: A&P Assessment and Plan (1) Chest pain: Qualifiers: Chest pain type: unspecified Qualified Code(s): R07.9 - Chest pain, unspecified Code(s): R07.9 - Chest pain, unspecified Status: Acute Assessment and Plan: Patient presents with chest pain. Her blood pressure was 263/83 and this was treated appropriately. EKG on admission showed sinus bradycardia rate of 57, incomplete right BBB, borderline ST-T wave changes diffusely. Troponin negative x3. BNP 6910. Positive D-dimer. PERC rule of 2. Chest x-ray was clear. This morning, she had recurrent chest pain. Repeat EKG showing no significant changes. Repeat troponin normal. CTA of the chest showing no PE but shows small-moderate bilateral pleural effusions with small basilar infiltrates and mild pulmonary venous congestion. Etiology of her chest pain from the HTN but also now consider Hiatal hernia/GERD. Start IV Lasix. (2) Hypertensive urgency: Code(s): I16.0 - Hypertensive urgency Status: Acute Assessment and Plan: Patient presents with hypertensive urgency with systolic blood pressures greater than 250 on initial presentation. Home medications of Cozaar and Imdure resumed with Coreg, hyralazine and Procardia dosing advanced. Echo here showing EF 70%, Grade II diastolic dysfunction, dilated LA, mild MR and pulmonary HTN. She has known YI. Add bipap at night. (3) Dyspnea on exertion: Code(s): R06.09 - Other forms of dyspnea Status: Acute (4) CAD (coronary artery disease): Code(s): I25.10 - Atherosclerotic heart disease of [place] coronary artery without angina pectoris Status: Acute Assessment and Plan: As above. Continue patient's home Lipitor, Plavix and ASA. For some reason the patient is on both pravastatin and atorvastatin so pravastatin stopped. The patient will need to clarify statin therapy with wound care coordinator as outpatient. (5) GERD (gastroesophageal reflux disease): Code(s): K21.9 - Gastro-esophageal reflux disease without esophagitis Status: Acute Assessment and Plan: Consider her symptoms are caused by GERD with onset after eating and nausea. Continue patient's home famotidine. Plan Patient with anxiety and depression - mood stable. Continue sertraline, hydroxyzine and trazodone. DVT Prophylaxis - SCDs Code status - full Subjective Date/time seen: 01/31/25 10:11 Interval history: 84yo female with AFib, CAD status post stenting and then 4v CABG 2021, HTN, HLD, YI, and CKD stage 3 who presented to the ER from primary care physician's office after having chest discomfort for 2-3 weeks. Patient is having chest pain. Occurred 1 hour after breakfast. No abdominal pain. No jaw pain. No back pain. Pain is 8/10 severity. Feels like ?someone hit me? she has nausea and shortness of breath. Pain is not pleuritic. Exam Narrative: AF 98.8 143/57 63 16 93% ra Gen - NARD Chest - CTA bilaterally, nml RR CV - RRR S1/S2. Telemetry showing no significant dysrhythmias Abd - Soft, NT/ND, Positive BS Ext -compression hose in place. Psych - Nml mood and affect Skin - Warm and dry Objective Data Vital Signs Vital Signs: Vital Signs - 24 hr 01/30/25 17:45 01/30/25 17:52 01/30/25 18:00 Temperature 97.2 F L Pulse Rate 60 57 L 58 L Respiratory Rate 16 16 21 H Blood Pressure 263/83 H Pulse Oximetry 95 97 95 Oxygen Delivery Room Air 01/30/25 18:02 01/30/25 18:15 01/30/25 18:17 Temperature Pulse Rate 56 L 55 L 56 L Respiratory Rate 22 H 19 22 H Blood Pressure 258/81 H 245/79 H Pulse Oximetry 96 94 94 Oxygen Delivery 01/30/25 18:33 01/30/25 18:35 01/30/25 18:54 Temperature Pulse Rate 60 61 61 Respiratory Rate 17 21 H Blood Pressure Pulse Oximetry 96 96 Oxygen Delivery 01/30/25 19:12 01/30/25 19:15 01/30/25 19:16 Temperature Pulse Rate 60 58 L 58 L Respiratory Rate 17 17 16 Blood Pressure 226/71 H Pulse Oximetry 96 96 96 Oxygen Delivery 01/30/25 19:30 01/30/25 19:31 01/30/25 19:35 Temperature Pulse Rate 57 L 58 L 58 L Respiratory Rate 17 18 16 Blood Pressure 222/75 H 222/75 H Pulse Oximetry 95 95 97 Oxygen Delivery 01/30/25 19:48 01/30/25 20:00 01/30/25 20:01 Temperature Pulse Rate 57 L 57 L 58 L Respiratory Rate 19 20 21 H Blood Pressure 219/74 H Pulse Oximetry 95 95 96 Oxygen Delivery 01/30/25 20:15 01/30/25 20:30 01/30/25 20:31 Temperature Pulse Rate 56 L 55 L 58 L Respiratory Rate 16 17 18 Blood Pressure 188/59 H Pulse Oximetry 96 95 94 Oxygen Delivery 01/30/25 20:45 01/30/25 20:46 01/30/25 20:46 Temperature Pulse Rate 55 L 56 L Respiratory Rate 18 20 Blood Pressure 188/59 H 178/60 H Pulse Oximetry 95 95 Oxygen Delivery 01/30/25 21:00 01/30/25 21:01 01/30/25 21:17 Temperature Pulse Rate 57 L 58 L 55 L Respiratory Rate 19 21 H 21 H Blood Pressure 186/56 H Pulse Oximetry 95 95 93 Oxygen Delivery 01/30/25 21:30 01/30/25 21:31 01/30/25 21:56 Temperature Pulse Rate 56 L 59 L 61 Respiratory Rate 20 22 H 19 Blood Pressure 168/68 H Pulse Oximetry 93 94 96 Oxygen Delivery 01/30/25 22:05 01/30/25 23:00 01/30/25 23:56 Temperature 98.1 F Pulse Rate 59 L 60 62 Respiratory Rate 19 19 20 Blood Pressure 154/49 H Pulse Oximetry 96 95 Oxygen Delivery Room Air 01/31/25 00:00 01/31/25 02:00 01/31/25 03:48 Temperature 98.1 F Pulse Rate 62 58 L 62 Respiratory Rate 20 Blood Pressure 150/47 H Pulse Oximetry 92 Oxygen Delivery 01/31/25 04:00 01/31/25 04:25 01/31/25 06:00 Temperature Pulse Rate 61 62 66 Respiratory Rate 20 Blood Pressure Pulse Oximetry 92 Oxygen Delivery Room Air 01/31/25 08:00 01/31/25 08:00 01/31/25 08:50 Temperature 98.8 F Pulse Rate 62 63 61 Respiratory Rate 16 Blood Pressure 143/57 H Pulse Oximetry 93 Oxygen Delivery 01/31/25 10:00 Temperature Pulse Rate 63 Respiratory Rate Blood Pressure Pulse Oximetry Oxygen Delivery Intake/Output Intake/Output: Intake & Output 01/28/25 01/29/25 01/30/25 01/31/25 23:59 23:59 23:59 23:59 Intake Total 120 Balance 120 Meds/Results Medications: Active Medications Generic Name Dose Route Start Last Admin Trade Name Freq PRN Reason Stop Dose Admin Acetaminophen 650 mg 01/30/25 21:14 Acetaminophen 325 Mg Tablet PO Q4H PRN Mild Pain (1-3) or Fever Aspirin 81 mg 01/31/25 09:00 01/31/25 08:50 Aspirin 81 Mg Enteric Tablet PO 81 mg QAM [facility] Administration Atorvastatin Calcium 40 mg 01/31/25 09:00 01/31/25 08:50 Atorvastatin 40 Mg Tablet PO 40 mg DAILY GERARDO Administration Carvedilol 6.25 mg 01/31/25 09:00 01/31/25 08:50 Carvedilol 3.125 Mg Tablet PO 6.25 mg Q12HR [facility] Administration Clopidogrel Bisulfate 75 mg 01/31/25 09:00 01/31/25 08:51 Clopidogrel Bisulfate 75 Mg Tablet PO 75 mg DAILY GERARDO Administration Famotidine 20 mg 01/31/25 09:00 01/31/25 08:50 Famotidine 20 Mg Tablet PO 20 mg DAILY [facility] Administration Ferrous Sulfate 325 mg 01/31/25 09:00 01/31/25 08:50 Ferrous Sulfate 325 Mg Tablet PO 325 mg DAILY [facility] Administration Hydralazine HCl 10 mg 01/30/25 21:19 Hydralazine Hcl 20 Mg/Ml Vial IV PUSH Q4H PRN SBP greater than 180 Hydralazine HCl 25 mg 01/31/25 06:00 01/31/25 06:40 Hydralazine Hcl 25 Mg Tablet PO 25 mg Q8HR GERARDO Administration Hydroxyzine HCl 25 mg 01/31/25 09:00 01/31/25 08:50 Hydroxyzine Hcl 25 Mg Tablet PO 25 mg BID [facility] Administration Isosorbide Mononitrate 30 mg 01/31/25 09:00 01/31/25 08:50 Isosorbide Mononitrate 30 Mg Tab.Er.24h PO 30 mg DAILY GERARDO Administration Losartan Potassium 100 mg 01/31/25 09:00 01/31/25 08:50 Losartan Potassium 100 Mg Tablet PO 100 mg DAILY GERARDO Administration Nifedipine 90 mg 01/31/25 21:00 Nifedipine 30 Mg Tab.Er.24 PO QHS [facility] Nitroglycerin 0.4 mg 01/30/25 21:19 Nitroglycerin Sl 0.4 Mg Tablet SUBLINGUAL Q5MIN PRN Chest Pain Ondansetron HCl 4 mg 01/30/25 21:14 Ondansetron Inj 4 Mg/2 Ml Vial IV PUSH Q4H PRN Nausea Perflutren Lipid Microsphere 0 ml 01/30/25 21:19 Perflutren Lipid Microspheres 1.5 Ml Vial Diluted To 10 Ml Total Volume IV PUSH 02/02/25 21:20 ONCE PRN adequate visualization Protocol Sertraline HCl 100 mg 01/31/25 09:00 01/31/25 08:50 Sertraline Hcl 50 Mg Tablet PO 100 mg DAILY GERARDO Administration Trazodone HCl 50 mg 01/31/25 21:00 Trazodone Hcl 50 Mg Tablet PO HS [facility] Radiology Results: ITS Impressions Chest X-Ray 01/30/25 19:06 IMPRESSION: No acute lung findings.] [ ] Labs Labs: Laboratory Results - last 24 hr 01/30/25 01/30/25 01/30/25 17:50 20:52 23:46 WBC 6.2 RBC 3.24 L Hgb 9.9 L Hct 30.6 L MCV 94.4 MCH 30.6 MCHC 32.4 RDW 13.4 Plt Count 160 MPV 11.8 H Immature Gran % (Auto) 0.3 Neut % (Auto) 68.6 Lymph % (Auto) 22.9 [place] % (Auto) 6.8 Eos % (Auto) 1.1 Baso % (Auto) 0.3 Lymph # (Auto) 1.42 [place] # (Auto) 0.4 Eos # (Auto) 0.1 Baso # (Auto) 0.0 Abs Immat Gran (auto) 0.02 Absolute Neuts (auto) 4.3 Absolute Nucleated RBC 0.000 Nucleated RBC % 0.0 PT 13.5 INR 1.0 APTT 28.8 D-Dimer 0.58 H Sodium 139 Potassium 3.4 Chloride 107 Carbon Dioxide 25 Anion Gap 7 BUN 14 Creatinine 1.05 H Estim Creat Clear Calc 38 Estimated GFR 50 L Glucose 95 Calcium 8.5 Total Bilirubin 0.4 AST 30 ALT 18 Alkaline Phosphatase 66 Troponin I 0.029 0.029 0.029 NT-Pro-B Natriuret Pep 6910 H Total Protein 6.3 Albumin 3.7 Lipase 97
[2025-01-31 11:17] LABS: Troponin I 0.034 ng/mL (0.000-0.034)
[2025-01-31] MEDS: ONDANSETRON INJ 4 MG/2 ML VIAL IV PUSH (11:17)
[2025-01-31] MEDS: FUROSEMIDE INJ 40 MG/4 ML VIAL 20 MG IV PUSH (17:40)
[2025-02-01] VITALS (11 sets, daily range): BP systolic 129–152; BP diastolic 42–52; PULSE 51–62; RESP 16–20; TEMP 36.6–36.9; O2SAT 91–93
[2025-02-01 04:05] LABS: Hematocrit 27.5 % (37.0-47.0); Hemoglobin 8.9 g/dL (12.0-15.0); Mean Corpuscular HGB Conc 32.4 g/dl (32-36); Mean Corpuscular Hemoglobin 30.6 pg (26-34); Mean Corpuscular Volume 94.5 fl (80-100); Platelet Count Result 139 k/mm3 (150-375); Red Blood Count 2.91 M/mm3 (4.2-5.4); White Blood Count 5.0 K/mm3 (4.5-10.0)
[2025-02-01 04:16] LABS: Anion Gap 0 mmol/L (4-12); Blood Urea Nitrogen 14 mg/dL (7-17); Calcium 8.2 mg/dL (8.4-10.2); Carbon Dioxide 28 mmol/L (22-30); Chloride 106 mmol/L (98-107); Estimated CRCL calculation 33 ml/min; Estimated Glomerular Filt Rate 43; Glucose 86 mg/dL (65-110); Potassium 3.6 mmol/L (3.4-5.0); Sodium 134 mmol/L (137-145)
[2025-02-01 04:19] LABS: Iron 44 ug/dL (37-170)
[2025-02-01 04:29] LABS: Percent Iron Saturation 24 % (20-50)
[2025-02-01 04:51] LABS: Thyroid Stimulating Hormone Reflex 2.070 uIU/mL (0.465-4.68)
[2025-02-01 05:27] LABS: Vitamin B12 403.0 pg/mL (239-931)
[2025-02-01] MEDS: ISOSORBIDE MONONITRATE 30 MG TAB.ER.24H PO (08:28)
[2025-02-01] MEDS: ASPIRIN 81 MG ENTERIC TABLET PO (08:29)
[2025-02-01] MEDS: FERROUS SULFATE 325 MG TABLET PO (08:29)
[2025-02-01] MEDS: ATORVASTATIN 40 MG TABLET PO (08:29)
[2025-02-01] MEDS: SERTRALINE HCL 50 MG TABLET 100 MG PO (08:29)
[2025-02-01] MEDS: FAMOTIDINE 20 MG TABLET PO (08:29)
[2025-02-01] MEDS: LOSARTAN POTASSIUM 100 MG TABLET PO (08:29)
[2025-02-01] MEDS: CLOPIDOGREL BISULFATE 75 MG TABLET PO (08:29)
[2025-02-01] MEDS: FUROSEMIDE INJ 40 MG/4 ML VIAL 20 MG IV PUSH (08:30)
--- NOTE | 2025-02-01 13:56 | PM.DS ---
DS: Admitting Diagnosis Discharge Date 02/01/25 Admitting Diagnosis Chest pain DS: Discharge Diagnosis Discharge Diagnosis (1) Chest pain: Qualifiers: Chest pain type: unspecified Qualified Code(s): R07.9 - Chest pain, unspecified Code(s): R07.9 - Chest pain, unspecified Status: Acute (2) Hypertensive urgency: Code(s): I16.0 - Hypertensive urgency Status: Acute (3) CAD (coronary artery disease): Code(s): I25.10 - Atherosclerotic heart disease of [place] coronary artery without angina pectoris Status: Acute (4) GERD (gastroesophageal reflux disease): Code(s): K21.9 - Gastro-esophageal reflux disease without esophagitis Status: Acute DS: Summary Hospital Course Reason for hospitalization: 84yo female with AFib, CAD status post stenting and then 4v CABG 2021, HTN, HLD, YI, and CKD stage 3 who presented to the ER from primary care physician's office after having chest discomfort for 2-3 weeks. Please see H&P for details Hospital Course: Patient presented with chest pain. Her blood pressure was 263/83 and this was treated appropriately. EKG on admission showed sinus bradycardia rate of 57, incomplete right BBB, borderline ST-T wave changes diffusely. Troponin negative x3. BNP 6910. Positive D-dimer. PERC rule of 2. Chest x-ray was clear. CTA of the chest showing no PE but shows small-moderate bilateral pleural effusions with small basilar infiltrates and mild pulmonary venous congestion. Lower extremity venous doppler negative for DVT. Etiology of her chest pain from the HTN but consider Hiatal hernia/GERD. She was started on IV Lasix. Home medications of Cozaar, nifedipine and Imdur resumed with Coreg, hydralazine dosing advanced. Echo here showing EF 70%, Grade II diastolic dysfunction, dilated LA, mild MR and pulmonary HTN. She has known YI but she refused BiPAP here. Patient with known coronary artery disease. We continued patient's home Lipitor, Plavix and ASA. For some reason the patient is on both pravastatin and atorvastatin so pravastatin stopped. The patient will need to clarify statin therapy with greens keeper as outpatient. Patient with anxiety and depression. Mood remained stable. We continued sertraline, hydroxyzine and trazodone. Thyroid nodule noted on imaging but this is a known finding per patient. Recommend she talk with her doctor about this and may need repeat imaging. She overall did well and was able to be discharged home on 02/01/25. Discharge instructions discussed in detail including side effects of her medications. All questions answered. Status at Discharge Cognitive/behavioral status at discharge: stable Time Spent with Patient Time attestation: Total time spent providing and/or coordinating discharge services: 35 minutes Time spent: Greater than 30 minutes Exam Narrative: AF 98.4 129/46 57 18 92% ra Gen - NARD Chest - CTA bilaterally, nml RR CV - RRR S1/S2. Telemetry showing no significant dysrhythmias Abd - Soft, NT/ND, Positive BS Ext - no edema Psych - Nml mood and affect Skin - Warm and dry DS: Data Data Completed and Pending Labs on day of discharge: Labs from last 24 hours 02/01/25 03:59 WBC 5.0 RBC 2.91 L Hgb 8.9 L Hct 27.5 L MCV 94.5 MCH 30.6 MCHC 32.4 RDW 13.7 Plt Count 139 L MPV 11.6 H Sodium 134 L Potassium 3.6 Chloride 106 Carbon Dioxide 28 Anion Gap 0 L BUN 14 Creatinine 1.19 H Estim Creat Clear Calc 33 Estimated GFR 43 L Glucose 86 Calcium 8.2 L Iron 44 TIBC 184 L % Saturation 24 Vitamin B12 403.0 Folate 5.9 TSH (Reflex) 2.070 Discharge Plan Discharge Attending physician on discharge: Cristobal Lopez Discharging Clinician: Cristobal Lopez Anticipated Discharge Date/Time: 02/01/25 14:02 Patient Disposition: Home Activity: as tolerated Diet: heart healthy Discharge Instructions: Check blood pressure 1 to 2 times a day. Record and bring into your doctor for review. Call your doctor if your blood pressure is greater than 180/110. Take precautions to avoid falls. Rise slowly from a lying or sitting position. Pause before standing or walking. Check daily morning weights after voiding. Call your doctor if you gain more than 3 lb in 2 days or 5 lb in 1 week. Contact your doctor or call 911 and come to the Emergency Room if you have lightheadedness with standing or other worrisome symptoms. Avoid NSAIDs (ibuprofen, naproxen, Aleve). Tylenol is safe to take. Follow-up with your primary care provider in 1-2 weeks. Please call for appointment. Please talk with your doctor about having a thyroid ultrasound to further evaluate the 1.5cm right thyroid nodule as we spoke about Follow-up with your Asbestos Surveyor in 1-2 weeks. Please call for an appointment. Thank you for using [facility] for your health care needs. Patient Instructions: Antibiotic Form, Clopidogrel (By mouth), Hypertensive Crisis (GEN), Blood Thinners (GEN) Patient Language: Persian Stand Alone Forms: General Discharge Information Follow-up/Referrals: Cal,Bernadette Marcos, HRIS SPECIALIST [Primary Care Provider, Unknown] - Call for Appointment Discharge Medications: New hydralazine 25 mg Tablet 25 mg PO Q8HR Qty: 90 1RF carvedilol 6.25 mg tablet 6.25 mg PO Q12H Qty: 60 1RF Rx Instructions: must administer with a meal/food Continued aspirin 81 mg capsule 81 mg PO DAILY atorvastatin [Lipitor] 40 mg tablet 40 mg PO DAILY isosorbide mononitrate 30 mg tablet extended release 24 hr 30 mg PO DAILY sertraline 100 mg tablet 100 mg PO DAILY clopidogrel 75 mg tablet 75 mg PO DAILY famotidine 20 mg tablet 20 mg PO DAILY trazodone 100 mg tablet 50 mg PO HS ferrous sulfate [Feosol] 325 mg (65 mg iron) tablet 325 mg PO DAILY losartan 100 mg tablet 100 mg PO DAILY Changed nifedipine 90 mg tablet extended release 90 mg PO QHS Qty: 30 0RF hydroxyzine HCl 25 mg tablet 25 mg PO BID PRN (Reason: Anxiety) Qty: 2 0RF Discontinued hydralazine 25 mg tablet 25 mg PO BID carvedilol 3.125 mg tablet 3.125 mg PO BID Rx Instructions: must administer with a meal/food pravastatin 20 mg tablet 20 mg PO DAILY Date of admission: 01/30/25 21:19 Primary Care Provider: PrasannaBernadette Admitting Provider: Delia Gusman Attending physician on admission: Delia Gusman Condition: Stable Hospitalist MIPS Heart Failure (Exclusion) Patient has history of Heart Transplant or Left Ventricular Assistive Device?: No IF YES, STOP HERE Heart Failure (Qualifier) Patient has current or prior documentation of LVEF less than or equal to 40%, or mod/servere depressed LVSF?: No IF NO, STOP HERE
--- NOTE | 2025-02-02 12:14 | PC.NURSE ---
Patient stated she did not receive any information on what medications she was suppose to continue after discharge. Pulled up her discharge paperwork and went over the medication on the discharge paperwork.
== END 2025-02-01 14:37 | disposition home or self-care (01) ==
LOC: ANHED 21:22 → ANHIMU 22:59
PROVIDERS: Emergency Medicine; Admitting Provider Internal Medicine; Emergency Provider Physician Assistant; PCP Nurse Practitioner Family; Visit Provider Internal Medicine
DX: R07.9 Chest pain, unspecified (principal); I16.0 Hypertensive urgency; R06.09 Other forms of dyspnea; R79.89 Other specified abnormal findings of blood chemistry; I25.10 Atherosclerotic heart disease of native coronary artery without angina pectoris; I12.9 Hypertensive chronic kidney disease with stage 1 through stage 4 chronic kidney disease, or unspecified chronic kidney disease; N18.30 Chronic kidney disease, stage 3 unspecified; I48.0 Paroxysmal atrial fibrillation; G47.33 Obstructive sleep apnea (adult) (pediatric); E78.5 Hyperlipidemia, unspecified; K21.9 Gastro-esophageal reflux disease without esophagitis; F41.8 Other specified anxiety disorders; Z95.1 Presence of aortocoronary bypass graft; Z95.5 Presence of coronary angioplasty implant and graft
CPT/HCPCS: 36415; 71046; 71275; 80048; 80053; 82607; 82746; 83540; 83550; 83690; 83880; 84443; 84484; 85025; 85027; 85380; 85610; 85730; 93005; 93306; 93970; 96374; 96375; 96376; 99285; A9270; G0378; J0360; J1938; J2405; Q9967